=== PATIENT | male | born 1990 | race Caucasian/White ===

== ENCOUNTER 2020-10-28 08:11 | Emergency (ER) | payer MEDICARE ==
[2020-10-28] MEDS ORDERED: hydrOXYzine PAMOATE 25 MG CAPSULE PO STA (09:03)
[2020-10-28] MEDS ORDERED: PROPRANOLOL 10 MG TABLET PO STA (09:04)
--- NOTE | 2020-10-28 11:41 | ED Physician Documentation ---
History of Present Illness - Stated complaint Stated Complaint: MHE - Chief complaint Chief Complaint: MHE - History obtained from History obtained from: Patient, Family (sister) - Additonal information Additional information: 30yM with pmh depression and schizophrenia, formerly on risperdal and cariprazine, not currently on meds, p/w multiple anxiety attacks over past couple days, increasing in frequency, a/w verbal and physical tics that seem to worsen when he is out of the house. he has been trying to treat his symptoms himself with high cbd content marijuana. intermittent, worsening severity, a/w depressed mood. quicker to get sad or angry lately per sister. denies si/hi/avh. Review of Systems Ten Systems: 10 systems reviewed and negative Constitutional: denies: Fever, Chills Neurologic: denies: Altered mental status, Headache Psychiatric: reports: Depressed, Anxiety. denies: Suicidal, Homicidal, Hallucinations, Delusions Endocrine: denies: Weight loss, Weight gain PD PAST MEDICAL HISTORY - Past Medical History Past Medical History: Yes Psych: Anxiety, Schizophrenia - Past Surgical History Past Surgical History: No - Present Medications Home Medications: Ambulatory Orders Medication Instructions Recorded Confirmed Clonazepam 0.25 mg PO 1-2XD PRN #10 tab 10/28/20 Propranolol [Inderal] 10 mg PO QDAC PRN #30 tab 10/28/20 hydrOXYzine pamoate [Hydroxyzine 25 mg PO Q6H PRN #30 tab 10/28/20 Pamoate] - Allergies Allergies/Adverse Reactions: Allergies Allergy/AdvReac Type Severity Reaction Status Date / Time No Known Drug Allergies Allergy Verified 10/28/20 08:30 - Social History Does the pt smoke?: No Smoking Status: Never smoker PD ED PE NORMAL - Vitals Vital signs reviewed: Yes - General General: Alert and oriented X 3, No acute distress, Well developed/nourished, Other (intermittent twitching of head and shoulders) - HEENT HEENT: Atraumatic, PERRL, EOMI, Moist mucous membranes, Pharynx benign - Neck Neck: Supple, no meningeal sign - Cardiac Cardiac: RRR - Respiratory Respiratory: No respiratory distress, Clear bilaterally - Abdomen Abdomen: Non tender, Non distended - Male Male : Deferred - Rectal Rectal: Deferred - Back Back: No spinal TTP - Derm Derm: Normal color - Extremities Extremities: No deformity, No edema - Neuro Neuro: Alert and oriented X 3, 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 notable physical tic. ) Results - Vitals Vitals: Vital Signs - 24 hr 10/28/20 10/28/20 10/28/20 08:15 10:00 12:00 Temperature 36.3 C L Heart Rate 100 62 60 Respiratory 18 16 16 Rate Blood Pressure 118/69 127/72 119/69 O2 Saturation 100 100 100 Oxygen O2 Source Room air PD MEDICAL DECISION MAKING - ED course ED course: 30yM with pmh schizophrenia p/w multiple anxiety attacks over past few days. anxiety in the ED improved with propranolol and atarax then started to rebound. patient and his sister are requesting a short script for clonazepam, which has helped him in the past. extensive education given about dangers of psychological and physical dependence. education also given not to mix alcohol, MJ, clonazepam and not to drive with this medication. patient will f/u this week with outpatient psychologist at [facility] and will have psychiatric appt next week. our social media content manager saw him and gave additional resources as well. return precautions given. Departure - Departure Disposition: 01 Home, Self Care Clinical Impression: Anxiety, Depression, Tic Condition: Stable Instructions: ED Anxiety Reaction Ch Prescriptions: Clonazepam 0.25 mg PO 1-2XD PRN #10 tab PRN Reason: Anxiety hydrOXYzine pamoate [Hydroxyzine Pamoate] 25 mg PO Q6H PRN #30 tab PRN Reason: Anxiety Propranolol [Inderal] 10 mg PO QDAC PRN #30 tab PRN Reason: Anxiety Comments: You were seen in the ED for depression, panic attacks, underlying anxiety and development. You were given propranolol and atarax with some improvement. Because you've been on clonazepam in the past and it's worked for you, I'm prescribing a short course until you see a psychiatrist. Do not smoke marijuana or drink alcohol while taking it because they have a strong interaction. Do not drive on clonazepam or atarax. Return to the emergency department for any new or worsening symptoms or other concerns. Follow-up with your psychologist this upcoming week. Discharge Date/Time: 10/28/20 12:00
[2020-10-28 12:10] VITALS: BP 119/69
== END 2020-10-28 12:00 | disposition home or self-care (01) ==
LOC: ED 08:11
DX: F41.0 Panic disorder [episodic paroxysmal anxiety] (principal); F32.9 Major depressive disorder, single episode, unspecified; F20.9 Schizophrenia, unspecified; F95.9 Tic disorder, unspecified
CPT/HCPCS: 99283; A9270

== ENCOUNTER 2021-03-04 15:22 | Outpatient (CLI) | payer MEDICARE ==
[2021-03-04 15:37] LABS: BASOPHILS # (AUTO) 0.1 10^3/uL (0.0-0.1); BASOPHILS % (AUTO) 0.5 %; EOSINOPHILS # (AUTO) 0.2 10^3/uL (0.0-0.7); EOSINOPHILS % (AUTO) 1.8 %; HCT - HEMATOCRIT 49.2 % (42.0-52.0); HGB - HEMOGLOBIN 16.6 g/dL (14.0-18.0); LYMPHOCYTES # (AUTO) 2.9 10^3/uL (1.5-3.5); LYMPHOCYTES % (AUTO) 26.9 %; MEAN CORPUSCULAR HEMOGLOBIN 30.1 pg (27.0-31.0); MEAN CORPUSCULAR HGB CONC 33.7 g/dL (32.0-36.0); MEAN CORPUSCULAR VOLUME 89.3 fL (80.0-94.0); MEAN PLATELET VOLUME 9.9 fL (7.4-11.4); MONOCYTES # (AUTO) 0.6 10^3/uL (0.0-1.0); MONOCYTES % (AUTO) 5.7 %; NEUTROPHILS # (AUTO) 6.9 10^3/uL (1.5-6.6); PLT - PLATELET COUNT 296 10^3/uL (130-450); RED BLOOD COUNT 5.51 10^6/uL (4.70-6.10); RED CELL DISTRIBUTION WIDTH 12.7 % (12.0-15.0); WHITE BLOOD COUNT 10.6 x10^3/uL (4.8-10.8)
[2021-03-04 16:04] LABS: ALBUMIN/GLOBULIN RATIO 1.9 (1.0-2.2); ALKALINE PHOSPHATASE 76 IU/L (42-121); ALT ALANINE AMINOTRANSFERASE 17 IU/L (10-60); AST ASPARTATE AMINOTRANSFERASE 17 IU/L (10-42); BILIRUBIN,TOTAL 1.5 mg/dL (0.2-1.0); BUN - BLOOD UREA NITROGEN 11 mg/dL (6-20); CALCIUM 9.8 mg/dL (8.5-10.3); CARBON DIOXIDE - CO2 22 mmol/L (21-32); CHLORIDE 103 mmol/L (101-111); CREATININE 0.9 mg/dL (0.6-1.2); GFR - MDRD 98 (>89); GLUCOSE 92 mg/dL (70-100); SODIUM 135 mmol/L (135-145); TOTAL PROTEIN 7.7 g/dL (6.7-8.2)
[2021-03-04 16:23] LABS: CRP - C-REACTIVE PROTEIN < 1.0 mg/dL (0-1.0)
[2021-03-04 16:32] LABS: THYROID STIMULATING HORMONE 1.78 uIU/mL (0.34-5.60)
== END 2021-03-04 15:23 | disposition home or self-care (01) ==
LOC: LAB 15:22
PROVIDERS: ATTEND Physician Assistant
DX: F33.9 Major depressive disorder, recurrent, unspecified (principal); Z79.899 Other long term (current) drug therapy; G47.9 Sleep disorder, unspecified; F41.1 Generalized anxiety disorder; F41.0 Panic disorder [episodic paroxysmal anxiety]; F95.9 Tic disorder, unspecified
CPT/HCPCS: 36415; 80053; 82306; 84443; 85025; 85651; 86140

== ENCOUNTER 2021-03-11 08:41 | Outpatient (CLI) | payer MEDICARE | END 2021-03-11 23:59 | disposition home or self-care (01) | LOC: LAB.N 08:41 | PROVIDERS: ATTEND Physician Assistant Medical | DX: R07.0 Pain in throat (principal); Z20.822 Contact with and (suspected) exposure to COVID-19 ==

== ENCOUNTER 2021-08-04 08:00 | Outpatient (CLI) | payer MEDICARE ==
--- NOTE | 2021-08-04 18:45 | XRAY Report ---
PROCEDURE: Foot 3 View RT INDICATIONS: R FOOT PX TECHNIQUE: 3 views of the foot were acquired. COMPARISON: None. FINDINGS: BONES: No acute, displaced fracture or dislocation. An accessory cuboid is seen. Mild osteophytosis a bout the first MTP with joint space loss. SOFT TISSUES: No focal abnormality. IMPRESSION: 1.No acute osseous abnormality. Reviewed by: Yang Ames MD on 08/04/2021 6:44 PM PST Approved by: Yang Ames MD on 08/04/2021 6:44 PM PST Station ID: [id number]
== END 2021-08-04 23:59 ==
LOC: DI.N 08:00
PROVIDERS: ATTEND Family Medicine
DX: M79.671 Pain in right foot (principal)